=== PATIENT | female | born 1970 | race Caucasian/White ===

== ENCOUNTER 2021-07-20 17:26 | Emergency (ER) | payer OTHER ==
[~2021-07-20] VITALS: Ht 162.6 cm; Wt 79.4 kg
[~2021-07-20 17:26] MED LIST: GLUCOPHAGE1000 MG PO; LEVAQUIN; NORCO 5-325 TA1 EACH PO; ONDANSETRON ODT4 MG PO; TRILIPIX135 MG PO; VICODIN OR; ZOFRAN ODT4 MG PO; ZOLOFT PO; ZOLOFT100 MG PO
[2021-07-20] MEDS ORDERED: COQ-1030 MG PO (17:42)
[2021-07-20] MEDS ORDERED: IRON18 M1 PO (17:42)
[2021-07-20] MEDS ORDERED: LODINE400 M1 PO (17:42)
[2021-07-20] MEDS ORDERED: VITAMIN C100 MG PO (17:43)
[2021-07-20] MEDS ORDERED: LISINOPRIL10 MG PO (17:43)
[2021-07-20] MEDS ORDERED: COLACE100 MG PO (17:43)
[2021-07-20 18:18] LABS: URINE BLOOD NEGATIVE (Negative); URINE CLARITY CLEAR; URINE COLOR YELLOW; URINE GLUCOSE-RANDOM NEGATIVE (Negative); URINE KETONES NEGATIVE (Negative); URINE LEUKOCYTES-REFLEX NEGATIVE (Negative); URINE NITRITE-REFLEX NEGATIVE (Negative); URINE PROTEIN NEGATIVE (Negative); URINE UROBILINOGEN 0.2 E.U./dl (0.2-1.0)
[2021-07-20 18:22] LABS: ICTOTEST (BILI CONFIRMATORY) Positive (Negative); URINE BILIRUBIN 2+ (Negative)
[2021-07-20 18:22] LABS: ABSOLUTE BASOPHILS 0.1 thou/uL (0.0-0.2); ABSOLUTE EOSINOPHILS 0.1 thou/uL (0.0-0.7); ABSOLUTE LYMPHOCYTES 2.8 thou/uL (0.8-5.3); ABSOLUTE MONOCYTES 0.8 thou/uL (0.0-1.2); ABSOLUTE NEUTROPHILS 5.8 thou/uL (1.6-8.1); EOSINOPHILS 0.8 %; HEMATOCRIT 39.8 % (37.0-47.0); HEMOGLOBIN 13.2 gm/dL (12.0-15.0); MCH 28.3 pg (26.0-34.0); MCHC 33.2 g/dL (28.0-37.0); MCV 85.3 fL (80.0-100.0); MONOCYTES 8.8 %; MPV 7.4 fl. (7.2-11.1); NUCLEATED RBCS 0 /100WBC; PLATELET COUNT* 426 thou/uL (150-400); POLYS 60.4 %; RBC 4.67 mil/uL (4.20-5.00); RDW-CV 14.2 % (10.5-14.5); WBC 9.6 thou/uL (4.0-11.0)
[2021-07-20 18:32] LABS: POTASSIUM 3.8 mmol/L (3.5-5.1)
[2021-07-20 18:36] LABS: ALBUMIN 4.3 g/dL (3.4-5.0); TOTAL BILIRUBIN 0.5 mg/dL (<0.1-1.0); TOTAL PROTEIN 8.2 g/dL (6.4-8.2)
[2021-07-20] MEDS ORDERED: APAP W/CODEINE1 TA2 PO (20:35)
[2021-07-20] MEDS ORDERED: CIPRO500 M1 PO (20:35)
[2021-07-20 20:48] VITALS: BP 135/65
== END 2021-07-20 20:49 | disposition home or self-care (01) ==
LOC: M.ERS 17:26
PROVIDERS: Physician Assistant
DX: R10.31 Right lower quadrant pain (principal); R10.11 Right upper quadrant pain; E11.9 Type 2 diabetes mellitus without complications; E78.5 Hyperlipidemia, unspecified; K21.9 Gastro-esophageal reflux disease without esophagitis; Z90.710 Acquired absence of both cervix and uterus; Z98.51 Tubal ligation status; Z90.89 Acquired absence of other organs; Z79.899 Other long term (current) drug therapy; Z88.2 Allergy status to sulfonamides